=== PATIENT | female | born 1950 | race Caucasian/White ===

== ENCOUNTER 2017-12-13 01:03 | Observation (INO) | payer OTHER ==
[~2017-12-13] VITALS: Ht 175.3 cm; Wt 128.5 kg
[2017-12-13] VITALS (7 sets, daily range): BP systolic 122–163; BP diastolic 56–93
[~2017-12-13 01:03] MED LIST: ADVAIR HFA120 INHALA IH; ASPIRIN325 MG PO; BACTRIM,SEPT1 TABLET PO; CIPRO500 MG PO; CLOBETASOL PROP60 G1 TP; COLACE100 MG PO; FLUOXETINE HCL20 M1 PO; FLUOXETINE HCL20 MG PO; FUROSEMIDE20 MG PO; FUROSEMIDE80 MG PO; GABAPENTIN300 MG PO; GLIPIZIDE XL10 MG PO; GLUCOPHAGE1000 MG PO; HUMIRA PSO40 MG/0.8 SC; HUMULIN R500 UNITS/ SC; KENALOG,ARISTOC15 G2 TP; LASIX40 MG PO; LEVOTHYROXINE88 MCG PO; LITE COAT ASPI325 M1 PO; LOVASTATIN40 MG PO; MEGACE20 MG PO; METOPROLOL SUCC50 MG PO; METOPROLOL TART50 MG PO; MOBIC7.5 MG PO; PERCOCET 5/31 TABLET PO; PRAVACHOL80 MG PO; PRAVASTATIN SOD80 MG PO; PROVENTIL HFA6.7 GM IH; SPIRIVA RESPIMAT4 GM IH; STELARA90 MG/1 ML SC; SYMBICORT60 INHALAT IH; SYNTHROID88 MCG PO; TOPROL XL50 MG PO; TRAMADOL HCL50 MG PO; VITAMIN D; VITAMIN D250000 UNIT PO; [UNRECOGNIZED DRUG - OTHER]
[2017-12-13 02:36] LABS: HEMATOCRIT 42.7 % (36.0-46.0); HEMOGLOBIN 14.5 G/DL (11.9-15.5); MCH 29.8 PG (29.0-34.0); MCV 87.7 FL (83-99); PLATELET COUNT 204 K/uL (156-360); RBC DIS.WIDTH-CV 12.3 % (11.8-14.6); RBC DIS.WIDTH-SD 39.8 % (39-53); RED BLOOD COUNT 4.87 M/uL (3.80-5.20); WHITE BLOOD COUNT 10.1 K/uL (4.1-10.2)
[2017-12-13 02:44] LABS: CHLORIDE 94 mEq/L (99-109); POTASSIUM 4.8 mEq/L (3.7-5.4); SODIUM 134 mEq/L (136-147)
[2017-12-13 02:50] LABS: CREATININE 1.2 mg/dL (0.6-1.3); GFR ESTIMATE (CALCULATED) 48 mL/min/
[2017-12-13 02:51] LABS: GLUCOSE 424 mg/dL (70-99); UREA NITROGEN (BUN) 20 mg/dL (9-23)
[2017-12-13 07:58] LABS: APPEARANCE CLEAR ((CLEAR)); BILIRUBIN NEGATIVE; BLOOD NEGATIVE; COLOR YELLOW ((YELLOW)); GLUCOSE (STRIP) >=500; KETONES 20; LEUKOCYTES NEGATIVE; NITRITE NEGATIVE; PROTEIN (STRIP) NEGATIVE; SPECIFIC GRAVITY 1.025 (1.000-1.030); UCUL ADDED? NO; UROBILINOGEN 0.2 MG/DL (0.2-1.0)
[2017-12-13] MEDS ORDERED: LIPITOR10 MG PO (09:02)
[2017-12-13] MEDS ORDERED: HUMULIN N100 UNITS/ SC (09:07)
[2017-12-13] MEDS ORDERED: HUMULIN R500 UNITS/ SC (09:08)
[2017-12-14 05:59] LABS: HEMATOCRIT 39.6 % (36.0-46.0); MCHC 32.8 G/DL (30.0-36.0); MCV 88.2 FL (83-99); PLATELET COUNT 182 K/uL (156-360); RBC DIS.WIDTH-CV 12.7 % (11.8-14.6); RBC DIS.WIDTH-SD 40.9 % (39-53); RED BLOOD COUNT 4.49 M/uL (3.80-5.20); WHITE BLOOD COUNT 5.1 K/uL (4.1-10.2)
[2017-12-14 06:25] LABS: CHLORIDE 95 MEQ/L (99-109); CREATININE 0.9 MG/DL (0.6-1.3); GFR ESTIMATE (CALCULATED) > 59 mL/min/; GLUCOSE 277 mg/dL (70-99); POTASSIUM 4.6 MEQ/L (3.7-5.4); SODIUM 132 MEQ/L (136-147); UREA NITROGEN (BUN) 19 mg/dL (9-23)
[2017-12-14 08:30] VITALS: BP 124/65
[2017-12-14 16:25] VITALS: BP 108/57
[2017-12-14 23:18] VITALS: BP 136/64
[2017-12-15 06:05] LABS: BASOPHIL (%) 0.3 % (0-1); EOSINOPHIL (%) 4.5 % (0-5); EOSINOPHIL COUNT 0.3 K/uL (0-0.3); HEMATOCRIT 38.8 % (36.0-46.0); HEMOGLOBIN 12.7 G/DL (11.9-15.5); IMMATURE GRANULOCYTE (%) 0.2 % (0.0-0.7); LYMPHOCYTE (%) 11.1 % (15-42); LYMPHOCYTE COUNT 0.7 K/uL (1.0-2.8); MCH 29.5 PG (29.0-34.0); MCHC 32.7 G/DL (30.0-36.0); MONOCYTE (%) 11.4 % (3-12); MONOCYTE COUNT 0.7 K/uL (0-0.8); NEUTROPHIL (%) 72.5 % (45-76); NEUTROPHIL COUNT 4.6 K/uL (1.8-6.4); PLATELET COUNT 192 K/uL (156-360); RED BLOOD COUNT 4.31 M/uL (3.80-5.20); WHITE BLOOD COUNT 6.4 K/uL (4.1-10.2)
[2017-12-15 06:33] LABS: CHLORIDE 97 MEQ/L (99-109); CREATININE 0.9 MG/DL (0.6-1.3); GFR ESTIMATE (CALCULATED) > 59 mL/min/; GLUCOSE 167 mg/dL (70-99); POTASSIUM 4.5 MEQ/L (3.7-5.4); SODIUM 132 MEQ/L (136-147); UREA NITROGEN (BUN) 20 mg/dL (9-23)
[2017-12-15 08:30] VITALS: BP 151/67
[2017-12-15 08:32] LABS: HEMOGLOBIN A1c (GLYCOHEMOGLOB) 11.1 % (Below 5.7)
[2017-12-15 17:00] VITALS: BP 126/67
[2017-12-15 23:53] VITALS: BP 109/55
[2017-12-16 08:24] VITALS: BP 138/63
[2017-12-16 15:21] VITALS: BP 123/55
[2017-12-17 00:03] VITALS: BP 134/60
[2017-12-17 08:14] VITALS: BP 154/67
[2017-12-17 15:32] VITALS: BP 131/65
[2017-12-17 23:38] VITALS: BP 152/63
[2017-12-18 07:57] VITALS: BP 139/65
[2017-12-18 15:43] VITALS: BP 142/63
[2017-12-18 23:48] VITALS: BP 128/62
[2017-12-19 08:08] VITALS: BP 135/64
[2017-12-19 16:35] VITALS: BP 125/57
[2017-12-19 23:46] VITALS: BP 125/61
[2017-12-20 08:03] VITALS: BP 166/72
[2017-12-20 16:27] VITALS: BP 119/59
[2017-12-20 23:07] VITALS: BP 133/60
[2017-12-21 07:44] VITALS: BP 118/59
[2017-12-21 15:45] VITALS: BP 161/68
[2017-12-22 00:35] VITALS: BP 137/73
[2017-12-22 08:03] VITALS: BP 157/68
[2017-12-22 16:10] VITALS: BP 139/63
[2017-12-22 21:00] VITALS: BP 125/85
[2017-12-22 23:28] VITALS: BP 150/71
[2017-12-23 04:00] VITALS: BP 132/78
[2017-12-23 07:38] VITALS: BP 142/64
[2017-12-23 11:58] VITALS: BP 135/63
[2017-12-23] MEDS ORDERED: FLUOXETINE HCL20 MG PO (15:35)
[2017-12-23] MEDS ORDERED: SPIRIVA RESPIMAT4 GM IH (15:36)
[2017-12-23] MEDS ORDERED: VENTOLIN HFA18 GM IH (15:36)
[2017-12-23] MEDS ORDERED: ACETAMINOPHEN650 M5 PO (15:39)
[2017-12-23] MEDS ORDERED: BISAC-EVAC10 MG PR (15:39)
[2017-12-23] MEDS ORDERED: MIRALAX17 GM PO (16:39)
[2017-12-23] MEDS ORDERED: LASIX40 MG PO (16:40)
[2017-12-23] MEDS ORDERED: COLACE100 MG PO (16:41)
[2017-12-23] MEDS ORDERED: PRAVACHOL40 MG PO (16:41)
[2017-12-23] MEDS ORDERED: NOVOLOG 10100 UNITS/ SC (16:42)
[2017-12-23] MEDS ORDERED: LOVENOX40 MG/0.4 SC (16:43)
[2017-12-23] MEDS ORDERED: PERCOCET 10/1 TABLET PO (16:43)
[2017-12-23] MEDS ORDERED: GLUCAGON HCL1 MG IM (16:44)
== END 2017-12-23 16:02 ==
LOC: EME → EDBD 01:03 → EME 01:03 → EDOF 03:20 → 3EAST 03:20 → ENRESERV 03:22 → 3EAST 04:32
PROVIDERS: Emergency Medicine; Hospitalist; Internal Medicine
DX: G89.11 Acute pain due to trauma (principal); S82.831A Other fracture of upper and lower end of right fibula, initial encounter for closed fracture; S92.591A Other fracture of right lesser toe(s), initial encounter for closed fracture; R26.89 Other abnormalities of gait and mobility; E11.65 Type 2 diabetes mellitus with hyperglycemia; W01.0XXA Fall on same level from slipping, tripping and stumbling without subsequent striking against object, initial encounter; E66.01 Morbid (severe) obesity due to excess calories; Z68.41 Body mass index [BMI] 40.0-44.9, adult; N39.0 Urinary tract infection, site not specified; K59.00 Constipation, unspecified; Z79.4 Long term (current) use of insulin; I11.0 Hypertensive heart disease with heart failure; I50.9 Heart failure, unspecified; J44.9 Chronic obstructive pulmonary disease, unspecified; L40.9 Psoriasis, unspecified; Z95.810 Presence of automatic (implantable) cardiac defibrillator; R32 Unspecified urinary incontinence; J96.10 Chronic respiratory failure, unspecified whether with hypoxia or hypercapnia; Z99.81 Dependence on supplemental oxygen; E87.1 Hypo-osmolality and hyponatremia; M85.80 Other specified disorders of bone density and structure, unspecified site; Z82.49 Family history of ischemic heart disease and other diseases of the circulatory system
CPT/HCPCS: 73522; 73564; 73590; 73610; 73630; 80048; 81003; 82948; 83036; 85025; 85027; 93005; 94799; 97530 GO; 97530 GP; 99202; 99281; 99285; G0378; G8978 GP CM; G8979 GP CL; G8987 GO CM; G8988 GO CM; J1650; J1815; J1885; J2405; J3010; J7030

== ENCOUNTER 2017-12-23 13:28 | Inpatient (IN) | payer OTHER ==
[~2017-12-23] VITALS: Ht 175.3 cm; Wt 125.9 kg
[~2017-12-23 13:28] MED LIST changes: +HUMULIN N100 UNITS/ SC; +LIPITOR10 MG PO
[2017-12-23] MEDS ORDERED: FLUOXETINE HCL20 MG PO (15:35)
[2017-12-23] MEDS ORDERED: VENTOLIN HFA18 GM IH (15:36)
[2017-12-23] MEDS ORDERED: SPIRIVA RESPIMAT4 GM IH (15:36)
[2017-12-23] MEDS ORDERED: BISAC-EVAC10 MG PR (15:39)
[2017-12-23] MEDS ORDERED: ACETAMINOPHEN650 M5 PO (15:39)
[2017-12-23 16:27] VITALS: BP 140/66
[2017-12-23] MEDS ORDERED: MIRALAX17 GM PO (16:39)
[2017-12-23] MEDS ORDERED: LASIX40 MG PO (16:40)
[2017-12-23] MEDS ORDERED: PRAVACHOL40 MG PO (16:41)
[2017-12-23] MEDS ORDERED: COLACE100 MG PO (16:41)
[2017-12-23] MEDS ORDERED: NOVOLOG 10100 UNITS/ SC (16:42)
[2017-12-23] MEDS ORDERED: PERCOCET 10/1 TABLET PO (16:43)
[2017-12-23] MEDS ORDERED: LOVENOX40 MG/0.4 SC (16:43)
[2017-12-23] MEDS ORDERED: GLUCAGON HCL1 MG IM (16:44)
[2017-12-24 00:18] VITALS: BP 138/59
[2017-12-24 05:57] VITALS: BP 159/71
[2017-12-24 06:27] LABS: HEMATOCRIT 38.9 % (36.0-46.0); MCHC 33.4 G/DL (30.0-36.0); MCV 89.6 FL (83-99); PLATELET COUNT 277 K/uL (156-360); RBC DIS.WIDTH-CV 12.8 % (11.8-14.6); RBC DIS.WIDTH-SD 41.8 % (39-53); RED BLOOD COUNT 4.34 M/uL (3.80-5.20); WHITE BLOOD COUNT 7.3 K/uL (4.1-10.2)
[2017-12-24 06:51] LABS: ALBUMIN 3.1 G/DL (3.2-4.8); ALKALINE PHOSPHATASE 219 IU/L (3-129); ALT (GPT) 40 IU/L (3-49); AST (GOT) 30 IU/L (2-34); CHLORIDE 99 MEQ/L (99-109); CREATININE 0.7 MG/DL (0.6-1.3); GFR ESTIMATE (CALCULATED) > 59 mL/min/; GLUCOSE 174 mg/dL (70-99); POTASSIUM 4.1 MEQ/L (3.7-5.4); SODIUM 137 MEQ/L (136-147); TOTAL BILIRUBIN 0.4 MG/DL (0.0-1.0); TOTAL PROTEIN 6.7 G/DL (6.4-8.3); UREA NITROGEN (BUN) 13 mg/dL (9-23)
[2017-12-24 15:11] VITALS: BP 151/67
[2017-12-25 05:46] VITALS: BP 135/82
[2017-12-25 15:30] VITALS: BP 124/61
[2017-12-26 05:39] VITALS: BP 139/66
[2017-12-26 16:00] VITALS: BP 122/58
[2017-12-27 06:18] VITALS: BP 142/66
[2017-12-27 15:00] VITALS: BP 128/62
[2017-12-28 07:13] VITALS: BP 114/58
[2017-12-28 15:56] VITALS: BP 142/65
[2017-12-28 22:50] VITALS: BP 154/66
[2017-12-29 04:51] VITALS: BP 125/58
[2017-12-29 07:57] LABS: HEMOGLOBIN 13.1 G/DL (11.9-15.5); MCH 29.6 PG (29.0-34.0); MCHC 32.8 G/DL (30.0-36.0); MCV 90.3 FL (83-99); PLATELET COUNT 235 K/uL (156-360); RBC DIS.WIDTH-SD 43.3 % (39-53); RED BLOOD COUNT 4.43 M/uL (3.80-5.20)
[2017-12-29 08:23] LABS: ALBUMIN 2.9 G/DL (3.2-4.8); ALKALINE PHOSPHATASE 167 IU/L (3-129); ALT (GPT) 21 IU/L (3-49); AST (GOT) 20 IU/L (2-34); CHLORIDE 101 MEQ/L (99-109); CREATININE 0.6 MG/DL (0.6-1.3); GFR ESTIMATE (CALCULATED) > 59 mL/min/; GLUCOSE 162 mg/dL (70-99); POTASSIUM 4.4 MEQ/L (3.7-5.4); SODIUM 138 MEQ/L (136-147); TOTAL PROTEIN 6.3 G/DL (6.4-8.3); UREA NITROGEN (BUN) 13 mg/dL (9-23)
[2017-12-29 08:24] LABS: TOTAL BILIRUBIN 0.5 MG/DL (0.0-1.0)
[2017-12-29 15:09] VITALS: BP 124/59
[2017-12-30 06:11] VITALS: BP 130/80
[2017-12-30 15:48] VITALS: BP 125/59
[2017-12-31 05:08] VITALS: BP 159/70
[2017-12-31] MEDS ORDERED: NOVOLIN N100 UNITS/ SC (12:34)
[2017-12-31] MEDS ORDERED: TRAMADOL HCL50 MG PO (12:34)
[2017-12-31] MEDS ORDERED: LOVENOX40 MG/0.4 SC (12:34)
[2017-12-31] MEDS ORDERED: NOVOLOG 10100 UNITS/ SC (12:34)
[2017-12-31 15:31] VITALS: BP 123/60
== END 2017-12-31 16:48 | disposition home health service (06) | DRG 560 ==
LOC: 3WEST 13:28 → ENPENDDIS 12-31 → 3WEST 12-31 16:48
PROVIDERS: Physical Medicine & Rehabilitation; Physical Medicine & Rehabilitation Pain Medicine
PROC: F07M0ZZ Range of Motion and Joint Mobility Treatment of Musculoskeletal System - Whole Body (ICD-10-PCS; principal; 2017-12-23)
DX: S82.831D Other fracture of upper and lower end of right fibula, subsequent encounter for closed fracture with routine healing (principal); V00.831D Fall from motorized mobility scooter, subsequent encounter; E87.1 Hypo-osmolality and hyponatremia; J96.10 Chronic respiratory failure, unspecified whether with hypoxia or hypercapnia; Z68.41 Body mass index [BMI] 40.0-44.9, adult; S92.591D Other fracture of right lesser toe(s), subsequent encounter for fracture with routine healing; E66.01 Morbid (severe) obesity due to excess calories; E03.9 Hypothyroidism, unspecified; E11.65 Type 2 diabetes mellitus with hyperglycemia; I11.0 Hypertensive heart disease with heart failure; I50.9 Heart failure, unspecified; J44.9 Chronic obstructive pulmonary disease, unspecified; L40.9 Psoriasis, unspecified; M47.816 Spondylosis without myelopathy or radiculopathy, lumbar region; M85.861 Other specified disorders of bone density and structure, right lower leg; Z60.2 Problems related to living alone; L60.3 Nail dystrophy; R53.1 Weakness; M16.0 Bilateral primary osteoarthritis of hip; M17.0 Bilateral primary osteoarthritis of knee; Z86.73 Personal history of transient ischemic attack (TIA), and cerebral infarction without residual deficits; Z99.81 Dependence on supplemental oxygen; Z87.442 Personal history of urinary calculi; Z79.4 Long term (current) use of insulin; Z82.3 Family history of stroke; Z82.49 Family history of ischemic heart disease and other diseases of the circulatory system
CPT/HCPCS: 80053; 82948; 85027; 87493; 97110 GO; 97530 GP; J1650; J1815

== ENCOUNTER 2018-04-21 07:57 | Emergency (ER) | payer OTHER ==
[~2018-04-21] VITALS: Ht 175.3 cm; Wt 131.2 kg
[~2018-04-21 07:57] MED LIST changes: +ACETAMINOPHEN650 M5 PO; +BISAC-EVAC10 MG PR; +GLUCAGON HCL1 MG IM; +LOVENOX40 MG/0.4 SC; +MIRALAX17 GM PO; +NOVOLIN N100 UNITS/ SC; +NOVOLOG 10100 UNITS/ SC; +PERCOCET 10/1 TABLET PO; +PRAVACHOL40 MG PO; +VENTOLIN HFA18 GM IH
[2018-04-21 08:55] LABS: BASOPHIL (%) 0.3 % (0-1); EOSINOPHIL (%) 1.5 % (0-5); EOSINOPHIL COUNT 0.1 K/uL (0-0.3); HEMATOCRIT 39.7 % (36.0-46.0); HEMOGLOBIN 13.2 G/DL (11.9-15.5); IMMATURE GRANULOCYTE (%) 0.3 % (0.0-0.7); LYMPHOCYTE (%) 4.7 % (15-42); LYMPHOCYTE COUNT 0.4 K/uL (1.0-2.8); MCH 29.8 PG (29.0-34.0); MCHC 33.2 G/DL (30.0-36.0); MCV 89.6 FL (83-99); MONOCYTE (%) 5.5 % (3-12); MONOCYTE COUNT 0.4 K/uL (0-0.8); NEUTROPHIL (%) 87.7 % (45-76); NEUTROPHIL COUNT 6.8 K/uL (1.8-6.4); PLATELET COUNT 175 K/uL (156-360); RBC DIS.WIDTH-CV 11.9 % (11.8-14.6); RED BLOOD COUNT 4.43 M/uL (3.80-5.20); WHITE BLOOD COUNT 7.8 K/uL (4.1-10.2)
[2018-04-21 09:02] LABS: CHLORIDE 97 mEq/L (99-109); POTASSIUM 4.9 mEq/L (3.7-5.4); SODIUM 135 mEq/L (136-147)
[2018-04-21 09:04] LABS: GLUCOSE 349 mg/dL (70-99)
[2018-04-21 09:08] LABS: GFR ESTIMATE (CALCULATED) 59 mL/min/
[2018-04-21 09:09] LABS: UREA NITROGEN (BUN) 18 mg/dL (9-23)
[2018-04-21 09:12] LABS: APPEARANCE CLEAR ((CLEAR)); BILIRUBIN NEGATIVE; BLOOD NEGATIVE; COLOR STRAW ((YELLOW)); GLUCOSE (STRIP) >=500; KETONES NEGATIVE; LEUKOCYTES NEGATIVE; NITRITE NEGATIVE; PROTEIN (STRIP) NEGATIVE; SPECIFIC GRAVITY 1.017 (1.000-1.030); UCUL ADDED? NO; UROBILINOGEN 0.2 MG/DL (0.2-1.0)
[2018-04-21] MEDS ORDERED: PERCOCET 5/31 TABLET PO ×2 (10:50→10:54)
[2018-04-21 11:17] VITALS: BP 153/64
== END 2018-04-21 11:19 | disposition home or self-care (01) ==
LOC: EME → EDBD 07:57 → EME 07:57
PROVIDERS: Emergency Medicine
DX: M48.56XA Collapsed vertebra, not elsewhere classified, lumbar region, initial encounter for fracture (principal); E11.9 Type 2 diabetes mellitus without complications; R10.9 Unspecified abdominal pain; N39.0 Urinary tract infection, site not specified; J44.9 Chronic obstructive pulmonary disease, unspecified; I11.0 Hypertensive heart disease with heart failure; I50.9 Heart failure, unspecified; E78.5 Hyperlipidemia, unspecified; Z95.810 Presence of automatic (implantable) cardiac defibrillator; Z79.84 Long term (current) use of oral hypoglycemic drugs; Z72.0 Tobacco use; Z87.442 Personal history of urinary calculi
CPT/HCPCS: 71045; 74176; 80048; 81003; 83605; 85025; 99281; 99285

== ENCOUNTER 2018-06-01 01:57 | Emergency (ER) | payer OTHER ==
[~2018-06-01] VITALS: Ht 175.3 cm; Wt 131.2 kg
[2018-06-01 02:26] LABS: BASOPHIL (%) 0.2 % (0-1); EOSINOPHIL (%) 1.2 % (0-5); EOSINOPHIL COUNT 0.2 K/uL (0-0.3); HEMATOCRIT 39.8 % (36.0-46.0); HEMOGLOBIN 13.2 G/DL (11.9-15.5); IMMATURE GRANULOCYTE (%) 0.5 % (0.0-0.7); LYMPHOCYTE (%) 8.3 % (15-42); MCH 29.9 PG (29.0-34.0); MCHC 33.2 G/DL (30.0-36.0); MCV 90.2 FL (83-99); MONOCYTE (%) 5.1 % (3-12); MONOCYTE COUNT 0.6 K/uL (0-0.8); NEUTROPHIL (%) 84.7 % (45-76); NEUTROPHIL COUNT 10.3 K/uL (1.8-6.4); PLATELET COUNT 195 K/uL (156-360); RBC DIS.WIDTH-CV 12.3 % (11.8-14.6); RBC DIS.WIDTH-SD 40.8 % (39-53); RED BLOOD COUNT 4.41 M/uL (3.80-5.20); WHITE BLOOD COUNT 12.1 K/uL (4.1-10.2)
[2018-06-01 02:46] LABS: TROP-I INTERPRETATION NEGATIVE; TROPONIN-I < 0.01 ng/mL (0.0-0.30)
[2018-06-01 02:54] LABS: CHLORIDE 101 mEq/L (99-109); SODIUM 143 mEq/L (136-147)
[2018-06-01 02:56] LABS: GLUCOSE 135 mg/dL (70-99)
[2018-06-01 02:59] LABS: CREATININE 1.1 mg/dL (0.6-1.3); GFR ESTIMATE (CALCULATED) 52 mL/min/
[2018-06-01 03:00] LABS: UREA NITROGEN (BUN) 26 mg/dL (9-23)
[2018-06-01 03:19] LABS: APPEARANCE SL.HAZY ((CLEAR)); BILIRUBIN NEGATIVE; BLOOD NEGATIVE; COLOR YELLOW ((YELLOW)); GLUCOSE (STRIP) 50; KETONES NEGATIVE; LEUKOCYTES MODERATE; NITRITE POSITIVE; PROTEIN (STRIP) NEGATIVE; SPECIFIC GRAVITY 1.021 (1.000-1.030); UROBILINOGEN 0.2 MG/DL (0.2-1.0)
[2018-06-01 03:23] LABS: BACTERIA 3+ /HPF; EPITHELIAL CELLS 1+ /HPF; HYALINE CASTS 0-5 /LPF; MUCUS TRACE /LPF; RED BLOOD CELLS 0-5 /HPF (0-5); UCUL ADDED? YES; WHITE BLOOD CELLS 20-30 /HPF (0-5)
[2018-06-01] MEDS ORDERED: CIPRO500 MG PO (04:00)
[2018-06-01 05:10] VITALS: BP 144/78
== END 2018-06-01 05:18 | disposition home or self-care (01) ==
LOC: EME 01:57
PROVIDERS: Emergency Medicine
DX: E86.0 Dehydration (principal); N39.0 Urinary tract infection, site not specified; B96.89 Other specified bacterial agents as the cause of diseases classified elsewhere; I11.0 Hypertensive heart disease with heart failure; I50.9 Heart failure, unspecified; J44.9 Chronic obstructive pulmonary disease, unspecified; E11.9 Type 2 diabetes mellitus without complications; E78.5 Hyperlipidemia, unspecified; E03.9 Hypothyroidism, unspecified; L40.9 Psoriasis, unspecified; Z79.84 Long term (current) use of oral hypoglycemic drugs; Z99.81 Dependence on supplemental oxygen; Z87.440 Personal history of urinary (tract) infections; Z87.442 Personal history of urinary calculi; Z95.810 Presence of automatic (implantable) cardiac defibrillator; Z98.890 Other specified postprocedural states; Z90.49 Acquired absence of other specified parts of digestive tract
CPT/HCPCS: 70450; 80048; 81003; 84484; 85025; 87077; 87086 GA; 87186; 93005; J7030

== ENCOUNTER 2018-06-26 05:01 | Emergency (ER) | payer OTHER ==
[~2018-06-26] VITALS: Ht 175.3 cm; Wt 133.2 kg
[2018-06-26 06:29] LABS: HEMATOCRIT 43.2 % (36.0-46.0); HEMOGLOBIN 14.2 G/DL (11.9-15.5); MCH 29.5 PG (29.0-34.0); MCHC 32.9 G/DL (30.0-36.0); MCV 89.6 FL (83-99); PLATELET COUNT 200 K/uL (156-360); RBC DIS.WIDTH-SD 39.5 % (39-53); RED BLOOD COUNT 4.82 M/uL (3.80-5.20); WHITE BLOOD COUNT 11.3 K/uL (4.1-10.2)
[2018-06-26 06:41] LABS: ALBUMIN 3.4 g/dL (3.2-4.8); CHLORIDE 99 mEq/L (99-109); POTASSIUM 4.6 mEq/L (3.7-5.4); SODIUM 137 mEq/L (136-147)
[2018-06-26 06:43] LABS: GLUCOSE 133 mg/dL (70-99); TOTAL PROTEIN 7.5 g/dL (6.4-8.3)
[2018-06-26 06:45] LABS: TOTAL BILIRUBIN 0.7 mg/dL (0.0-1.0)
[2018-06-26 06:47] LABS: ALKALINE PHOSPHATASE 162 IU/L (3-129); CREATININE 0.8 mg/dL (0.6-1.3); GFR ESTIMATE (CALCULATED) > 59 mL/min/
[2018-06-26 06:48] LABS: UREA NITROGEN (BUN) 18 mg/dL (9-23)
[2018-06-26 06:49] LABS: AST (GOT) 20 IU/L (2-34)
[2018-06-26 06:50] LABS: ALT (GPT) 15 IU/L (3-49); CREATINE KINASE 51 IU/L (1-294)
[2018-06-26 07:12] LABS: APPEARANCE SL.HAZY ((CLEAR)); BILIRUBIN NEGATIVE; BLOOD NEGATIVE; COLOR YELLOW ((YELLOW)); GLUCOSE (STRIP) >=500; KETONES NEGATIVE; LEUKOCYTES TRACE; NITRITE NEGATIVE; PROTEIN (STRIP) NEGATIVE; SPECIFIC GRAVITY 1.017 (1.000-1.030); UROBILINOGEN 0.2 MG/DL (0.2-1.0)
[2018-06-26 07:21] LABS: BACTERIA RARE /HPF; EPITHELIAL CELLS 1+ /HPF; MUCUS NONE SEEN /LPF; RED BLOOD CELLS 0-5 /HPF (0-5); UCUL ADDED? NO; WHITE BLOOD CELLS 0-5 /HPF (0-5)
[2018-06-26] MEDS ORDERED: ULTRAM50 MG PO (08:21)
[2018-06-26 10:39] VITALS: BP 127/72
== END 2018-06-26 10:40 | disposition home or self-care (01) ==
LOC: EME 05:01
PROVIDERS: Physician Assistant
DX: M54.5 Low back pain (principal); S80.01XA Contusion of right knee, initial encounter; M43.8X6 Other specified deforming dorsopathies, lumbar region; M51.36 Other intervertebral disc degeneration, lumbar region; M51.26 Other intervertebral disc displacement, lumbar region; M48.56XA Collapsed vertebra, not elsewhere classified, lumbar region, initial encounter for fracture; W08.XXXA Fall from other furniture, initial encounter; I11.0 Hypertensive heart disease with heart failure; I50.9 Heart failure, unspecified; J44.9 Chronic obstructive pulmonary disease, unspecified; E11.9 Type 2 diabetes mellitus without complications; E78.5 Hyperlipidemia, unspecified; E03.9 Hypothyroidism, unspecified; L40.9 Psoriasis, unspecified; Z79.84 Long term (current) use of oral hypoglycemic drugs; Z95.810 Presence of automatic (implantable) cardiac defibrillator; Z99.81 Dependence on supplemental oxygen; Z87.442 Personal history of urinary calculi; Z98.890 Other specified postprocedural states; Z90.49 Acquired absence of other specified parts of digestive tract
CPT/HCPCS: 72100; 72131; 73564; 80053; 81003; 82550; 85027; 99281; 99285